=== PATIENT | female | born 1960 | race Caucasian/White ===

== ENCOUNTER 2021-12-04 12:21 | Inpatient (IN) ==
[2021-12-04] MEDS ORDERED: methylPREDNISolone SOD SUC 125 MG/2 ML VIAL IV STA (13:05)
[2021-12-04 13:18] LABS: Basophils % 0.3 % (0.0-0.8); Eosinophils # 0.1 10*3/uL (0.0-0.87); Eosinophils % 1.4 % (0.00-10.9); Hematocrit 36.9 VOL% (35.7-47.0); Hemoglobin 12.5 GM/DL (12.0-16.0); Immature Granulocytes % 0.3 %; Immature Granulocytes Absolute 0.02 #; Lymphocytes % 17.7 % (21.3-54.2); Mean Corpuscular HGB Conc 33.9 GM/DL (32-36); Mean Platelet Volume 10.9 FL (9.6-12.0); Monocytes # 0.4 10*3/uL (0.11-0.8); Monocytes % 6.8 % (1.7-12.7); Neutrophils % 73.5 % (38.7-73.9); Platelet Count 232 T/CUMM (130-400); Red Cell Distribution Width 14.2 % (9.3-17.3); White Blood Count 5.7 T/CUMM (4-12)
[2021-12-04 13:37] LABS: Albumin 3.6 G/DL (3.4-5.0); Bilirubin,Total 0.5 MG/DL (0.20-1.00); Calcium 9.4 MG/DL (8.5-10.1); Potassium 3.4 MMOL/L (3.5-5.1); Total Protein 8.3 G/DL (6.4-8.2)
[2021-12-04] MEDS ORDERED: ONDANSETRON 4 MG/2 ML VIAL IV STA (14:34)
[2021-12-04] MEDS ORDERED: MORPHINE 10 MG/1 ML VIAL IV STA (14:34)
[2021-12-04] MEDS ORDERED: MORPHINE 2 MG/1 ML SYRINGE IV STA (14:52)
[2021-12-04] MEDS ORDERED: MORPHINE 2 MG/1 ML SYRINGE ONE (14:53)
[2021-12-04] MEDS ORDERED: GLUCAGON 1 MG VIAL IM PRN (15:10)
[2021-12-04] MEDS ORDERED: ONDANSETRON 4 MG/2 ML VIAL IV PRN (15:10)
[2021-12-04] MEDS ORDERED: DEXTROSE 10% 250 ML BAG IV PRN (15:10)
[2021-12-04] MEDS ORDERED: INDAPAMIDE 2.5 MG TABLET PO PRN (15:14)
[2021-12-04] MEDS ORDERED: ALBUTEROL 2.5 MG/3 ML NEB RESP TX PRN (15:14)
[2021-12-04] MEDS ORDERED: ALBUTEROL/IPRATROPIUM 3 ML NEB RESP TX SCH (15:30)
[2021-12-04] MEDS: SODIUM CHLORIDE 0.45% 1,000 ML IV SCH (15:54)
[2021-12-04] MEDS: HEPARIN 5,000 UNIT/1 ML VIAL SUBCUT SCH (15:56)
[2021-12-04] MEDS: metFORMIN 500 MG TABLET PO SCH ×2 (16:53→17:49)
[2021-12-04] MEDS: INSULIN LISPRO 100 UNIT/ML SUBCUT SCH ×2 (17:50→23:58)
[2021-12-04] MEDS ORDERED: CARBOXYMETHYLCELLULOSE 1% OPH SOLN BOTH EYES PRN (18:34)
[2021-12-04] MEDS: ALBUTEROL/IPRATROPIUM 3 ML NEB RESP TX SCH (20:26)
[2021-12-04] MEDS ORDERED: MYCOPHENOLATE MOFETIL 250 MG CAPSULE PO SCH (21:00)
[2021-12-04] MEDS: HYDROXYCHLOROQUINE 200 MG TABLET PO SCH (21:49)
[2021-12-04] MEDS: sitaGLIPtin 100 MG TABLET PO SCH (21:49)
[2021-12-04] MEDS: MYCOPHENOLATE 500 MG PO SCH (21:50)
[2021-12-04] MEDS: methylPREDNISolone SOD SUC 40 MG/1 ML VIAL IV SCH (21:51)
[2021-12-05] MEDS: HEPARIN 5,000 UNIT/1 ML VIAL SUBCUT SCH ×2 (00:07→11:59)
[2021-12-05] MEDS: ALBUTEROL/IPRATROPIUM 3 ML NEB RESP TX SCH ×4 (00:52→19:05)
[2021-12-05 05:25] LABS: Hematocrit 34.4 VOL% (35.7-47.0); Hemoglobin 11.4 GM/DL (12.0-16.0); Immature Granulocytes % 0.3 %; Immature Granulocytes Absolute 0.01 #; Lymphocytes # 0.6 10*3/uL (1.4-4.0); Lymphocytes % 18.9 % (21.3-54.2); Mean Corpuscular HGB Conc 33.1 GM/DL (32-36); Mean Corpuscular Volume 91.7 FL (87-102); Mean Platelet Volume 11.1 FL (9.6-12.0); Monocytes # 0.1 10*3/uL (0.11-0.8); Monocytes % 1.7 % (1.7-12.7); Neutrophils % 79.1 % (38.7-73.9); Platelet Count 207 T/CUMM (130-400); Red Blood Count 3.75 MC/CUMM (3.8-5.5)
[2021-12-05] MEDS: methylPREDNISolone SOD SUC 40 MG/1 ML VIAL IV SCH ×3 (05:28→23:28)
[2021-12-05] MEDS: SODIUM CHLORIDE 0.45% 1,000 ML IV SCH ×2 (05:29→23:26)
[2021-12-05 05:59] LABS: Calcium 9.2 MG/DL (8.5-10.1); Potassium 3.2 MMOL/L (3.5-5.1); Risk Ratio 3.09; Thyroid Stimulating Hormone 0.283 uIU/ml (0.358-3.74); VLDL Cholesterol 18.4 MG/DL
[2021-12-05] MEDS: MYCOPHENOLATE 500 MG PO SCH ×2 (08:00→22:00)
[2021-12-05] MEDS: CETIRIZINE 10 MG TABLET PO SCH (09:00)
[2021-12-05] MEDS: ROSUVASTATIN 10 MG TABLET PO SCH (09:00)
[2021-12-05] MEDS: PANTOPRAZOLE 40 MG TABLET PO SCH (09:00)
[2021-12-05] MEDS: HYDROXYCHLOROQUINE 200 MG TABLET PO SCH ×2 (09:00→21:00)
[2021-12-05] MEDS: LOSARTAN 25 MG TABLET PO SCH (09:00)
[2021-12-05] MEDS: metFORMIN 500 MG TABLET PO SCH ×2 (09:00→17:35)
[2021-12-05] MEDS: MULTIVITAMIN (CENTRUM) TABLET PO SCH (09:00)
[2021-12-05] MEDS: POTASSIUM CHLORIDE 20 MEQ TABLET PO SCH (09:00)
[2021-12-05] MEDS: INSULIN LISPRO 100 UNIT/ML SUBCUT SCH ×4 (09:00→23:26)
[2021-12-05] MEDS: ASPIRIN EC 81 MG TABLET PO SCH (09:00)
[2021-12-05] MEDS ORDERED: POTASSIUM CHLORIDE 20 MEQ TABLET PO ONE (12:12)
[2021-12-05] MEDS: ENOXAPARIN 80 MG/0.8 ML SYRINGE SUBCUT SCH ×2 (12:42→23:27)
[2021-12-05] MEDS: sitaGLIPtin 100 MG TABLET PO SCH (23:26)
[2021-12-06] MEDS: ALBUTEROL/IPRATROPIUM 3 ML NEB RESP TX SCH ×2 (00:05→07:10)
[2021-12-06 06:00] LABS: Hematocrit 31.8 VOL% (35.7-47.0); Hemoglobin 10.7 GM/DL (12.0-16.0); Immature Granulocytes % 0.5 %; Immature Granulocytes Absolute 0.03 #; Lymphocytes # 0.9 10*3/uL (1.4-4.0); Lymphocytes % 14.1 % (21.3-54.2); Mean Corpuscular HGB Conc 33.6 GM/DL (32-36); Mean Corpuscular Volume 92.2 FL (87-102); Mean Platelet Volume 10.7 FL (9.6-12.0); Monocytes # 0.4 10*3/uL (0.11-0.8); Monocytes % 6.3 % (1.7-12.7); Neutrophils % 79.1 % (38.7-73.9); Platelet Count 207 T/CUMM (130-400); Red Blood Count 3.45 MC/CUMM (3.8-5.5); Red Cell Distribution Width 14.4 % (9.3-17.3); White Blood Count 6.4 T/CUMM (4-12)
[2021-12-06 06:02] LABS: Potassium 3.9 MMOL/L (3.5-5.1)
[2021-12-06] MEDS: methylPREDNISolone SOD SUC 40 MG/1 ML VIAL IV SCH (07:02)
[2021-12-06] MEDS: SODIUM CHLORIDE 0.45% 1,000 ML IV SCH (07:54)
[2021-12-06] MEDS: INSULIN LISPRO 100 UNIT/ML SUBCUT SCH ×2 (08:14→12:44)
[2021-12-06 08:23] VITALS: BP 115/56
[2021-12-06] MEDS ORDERED: FERROUS SULFATE 325 MG TABLET PO SCH (09:00)
[2021-12-06] MEDS: metFORMIN 500 MG TABLET PO SCH (09:12)
[2021-12-06] MEDS: ASPIRIN EC 81 MG TABLET PO SCH (09:12)
[2021-12-06] MEDS: HYDROXYCHLOROQUINE 200 MG TABLET PO SCH (09:13)
[2021-12-06] MEDS: ROSUVASTATIN 10 MG TABLET PO SCH (09:13)
[2021-12-06] MEDS: PANTOPRAZOLE 40 MG TABLET PO SCH (09:13)
[2021-12-06] MEDS: MULTIVITAMIN (CENTRUM) TABLET PO SCH (09:13)
[2021-12-06] MEDS: LOSARTAN 25 MG TABLET PO SCH (09:13)
[2021-12-06] MEDS: CETIRIZINE 10 MG TABLET PO SCH (09:14)
[2021-12-06] MEDS: ENOXAPARIN 80 MG/0.8 ML SYRINGE SUBCUT SCH (09:14)
[2021-12-06] MEDS: MYCOPHENOLATE 500 MG PO SCH (09:14)
[2021-12-06 16:41] LABS: Phospholipid Ab IgM, S < 9.4 MPL
[2021-12-08 10:48] LABS: DRVVT Screen Ratio 0.86 ratio (<1.20); INR 1.1 (0.9-1.1)
== END 2021-12-06 11:56 | disposition home or self-care (01) | DRG 545 ==
LOC: N.ED 12:21 → N.EDINP 15:10 → SUATTDRO 15:10 → N.5E 16:15
PROVIDERS: ADMIT Internal Medicine; ATTEND Hospitalist